=== PATIENT | male | born 1955 ===

== ENCOUNTER 2017-09-14 21:55 | Emergency (ER) | payer OTHER ==
[2017-09-14 22:00] VITALS: BP 157/71; PULSE 56; RESP 18; TEMP 98.7; O2SAT 99
[2017-09-14 23:20] LABS: BASO # 0.1 K/uL (0.0-0.2); BASO % 0.8 % (0.0-2.0); EOS # 0.1 K/uL (0.0-0.7); EOS % 1.2 % (0.0-4.0); HEMATOCRIT 44.4 % (35.0-51.0); LYMPH # 2.5 K/uL (1.0-4.3); MEAN CELL VOLUME 89.7 fl (80.0-94.0); MEAN CORPUSCULAR HEMOGLOBIN 29.8 pg (27.0-31.0); MEAN CORPUSCULAR HGB CONC 33.2 g/dL (33.0-37.0); MEAN PLATELET VOLUME 10.1 fl (7.2-11.7); MONO # 0.6 K/uL (0.0-0.8); MONO % 7.2 % (0.0-10.0); NEUT # 4.4 K/uL (1.8-7.0); NEUT % 57.8 % (50.0-75.0); NRBC % 0.1 % (0.0-0.0); RED CELL DISTRIBUTION WIDTH 13.6 % (11.5-14.5); WHITE BLOOD COUNT 7.7 K/uL (4.8-10.8)
[2017-09-14 23:30] LABS: ALB/GLOB RATIO 1.3 (1.0-2.1); BILIRUBIN,TOTAL 0.5 mg/dl (0.2-1.3); CALCIUM 8.8 mg/dL (8.4-10.2); CARBON DIOXIDE 26 mmol/L (22-30); CHLORIDE 108 mmol/L (98-107); GFR AFRICAN-AMERICAN > 60; GLUCOSE,RANDOM 150 mg/dL (75-110); SODIUM 143 mmol/l (132-148); TOTAL PROTEIN 7.6 G/DL (6.3-8.2)
[2017-09-14 23:37] LABS: ALKALINE PHOSPHATASE 56 U/L (38-126); ALT/SGPT 46 U/L (21-72); AST/SGOT 28 U/L (17-59); BLOOD UREA NITROGEN 15 mg/dl (9-20); POTASSIUM 4.2 MMOL/L (3.6-5.0)
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
--- NOTE | 2017-09-15 08:05 | CARD ---
APPROVED REPORT EKG Measurement Heart [id number] <Conclusion> Normal sinus rhythm Increased R/S ratio in V1, consider early transition or posterior infarct Abnormal ECG
--- NOTE | 2017-09-15 08:52 | RAD ---
PROCEDURE: Left Hip X-ray Radiographs. HISTORY: Posttraumatic pain. COMPARISON: None. FINDINGS: BONES: No acute fractures identified. JOINTS: Moderate degenerative changes which are bilaterally symmetrical. SOFT TISSUES: Normal. OTHER FINDINGS: Constipation without fecal impaction or obstruction. IMPRESSION: No acute findings related to/accounting for the clinical presentation.
== END 2017-09-15 00:45 | disposition home or self-care (01) ==
LOC: H.ER 21:55
DX: S49.92XA Unspecified injury of left shoulder and upper arm, initial encounter (principal); S79.911A Unspecified injury of right hip, initial encounter; M54.2 Cervicalgia; V43.52XA Car driver injured in collision with other type car in traffic accident, initial encounter; Y92.410 Unspecified street and highway as the place of occurrence of the external cause; E78.5 Hyperlipidemia, unspecified; I10 Essential (primary) hypertension